=== PATIENT | male | born 1985 | race Caucasian/White ===

== ENCOUNTER 2022-02-20 09:05 | Emergency (ER) | payer OTHER, SELFPAY ==
[2022-02-20 09:13] VITALS: BP 158/105; PULSE 103; RESP 20; TEMP 35.6; O2SAT 97; BMI 32.1
--- NOTE | 2022-02-20 09:14 | ED_ITS ---
HPI - Abdominal Pain General Chief Complaint: Abdominal Pain Stated Complaint: right sided abdominal pain Time Seen by Provider: 02/20/22 09:10 History of Present Illness HPI narrative: Patient is a 36-year-old male with no past medical history presenting today with right upper quadrant pain. He says it started around 11:00 p.m. last night very uncomfortable mildly nauseous but no vomiting or fever. He was feeling well previously. Definitely tender to touch. Onset (ago): hour(s) Pain Consistency: constant Location: RUQ Quality: sharp Radiation: none Related Data Previous Rx's Medication Instructions Recorded hydrocodone 5 mg-acetaminophen 325 1 tab PO Q6H PRN pain #10 tabs 02/20/22 mg tablet Allergies Allergy/AdvReac Type Severity Reaction Status Date / Time No Known Drug Allergies Allergy Verified 02/20/22 09:24 Review of Systems Review of Systems Narrative: GENERAL: Denies chills, fatigue, malaise, fever, sweats, travel HEENT: Denies sinus pain, ear pain, sore throat, difficulty swallowing, neck pain RESPIRATORY: Denies dyspnea, cough, wheezing, hemoptysis, sputum. CARDIOVASCULAR: Denies chest pain, palpitations, orthopnea, edema GASTROINTESTINAL: See HPI : Denies dysuria, frequency, incontinence, hematuria, urinary retention, flank pain. MUSCULOSKELETAL: Denies weakness, joint pain, or bony pain SKIN: No rash, no erythema, no pruritus NEUROLOGIC: Denies weakness, dizziness, headache, numbness, change in speech, confusion PSYCHIATRIC: No concerning psychosocial issues. 12 point review of systems is negative except for those stated above and HPI Patient History Social History Smoking Status: Current every day smoker Exam Initial Vital Signs Initial Vital Signs: Vital Signs Temperature 96.1 F L 02/20/22 09:13 Pulse Rate 103 H 02/20/22 09:13 Respiratory Rate 20 02/20/22 09:13 Blood Pressure 158/105 H 02/20/22 09:13 Pulse Oximetry 97 02/20/22 09:13 Oxygen Delivery Method 02/20/22 09:13 GENERAL: Alert pleasant 36-year-old male appears uncomfortable HEENT: Head atraumatic,EOMI, pupils reactive, face symmetric, moist mucous membranes CARDIOVASCULAR: Regular rate and rhythm without murmurs, rubs or gallops. RESPIRATORY: Breath sounds equal bilaterally, no wheezes rales or rhonchi. ABDOMEN: Soft, tender right upper quadrant pain sign no guarding no rebound no CVA pain no lower abdominal pain especially no right lower quadrant EXTREMITIES: Normal range of motion, no clubbing or edema. Neurovascularly intact NEUROLOGICAL: Alert and oriented x4. SKIN: Warm, dry, no laceration, no petechiae, no rashes or lesions. Course Orders Ordered: ED Orders 02/20/22 09:14 EKG-12 Lead Stat 02/20/22 09:15 Complete Blood Count AUTO DIFF Stat Comprehensive Metabolic Panel Stat Lipase Stat 02/20/22 09:19 US abdomen limited Stat Discontinued Medications Ketorolac Tromethamine (Ketorolac 30 Mg/Ml Vial) 30 mg IV NOW ONE Stop: 02/20/22 09:15 Last Admin: 02/20/22 09:24 Dose: 30 mg Documented By: LYDIA Vital Signs Vital signs: Vital Signs - 8 hr 02/20/22 09:13 02/20/22 10:01 Temperature 96.1 F L Pulse Rate 103 H 93 H Respiratory Rate 20 24 Blood Pressure 158/105 H 131/81 Pulse Oximetry 97 95 Oxygen Delivery Method Room Air MDM - Abdominal Pain Lab Data Result diagrams: 02/20/22 09:15 02/20/22 09:15 Labs: Lab Results 02/20/22 02/20/22 Range/Units 09:15 09:15 WBC 10.3 (4.5-11.0) X10^3/uL RBC 5.32 (4.5-5.9) X10^6/uL Hgb 16.5 (13.5-17.5) g/dL Hct 47.0 (41-53) % MCV 88.4 (80-100) fL MCH 31.0 (26-34) PG MCHC 35.1 (30-36) % RDW 12.6 (11.6-14.8) % Plt Count 314 (150-400) X10^3/uL Neut % (Auto) 77.4 H (50-75) % Lymph % (Auto) 10.4 L (25-40) % [place] % (Auto) 9.5 (3-14) % Eos % (Auto) 1.9 L (2-4) % Baso % (Auto) 0.8 (0-2) % Neut # (Auto) 8000 H (4580-3721) /uL Lymph # (Auto) 1100 (6869-7500) /uL [place] # (Auto) 1000 H (0-900) /uL Eos # (Auto) 200 (0-450) /uL Baso # (Auto) 100 (0-100) /uL Sodium 142 (137-145) mmol/L Potassium 3.9 (3.4-5.1) mmol/L Chloride 106 (98-107) mmol/L Carbon Dioxide 23 (22-32) mmol/L BUN 13 (9-20) mg/dL Creatinine 0.97 (0.66-1.25) mg/dL Estimated GFR > 60 (>60) mL/min BUN/Creatinine Ratio 13.4 (6-22) Glucose 136 H (70-100) mg/dL Calcium 9.2 (8.4-10.2) mg/dL Total Bilirubin 0.5 (0.2-1.3) mg/dL AST 31 (17-59) IU/L ALT 49 (<50) IU/L Alkaline Phosphatase 95 (38-126) U/L Total Protein 8.4 H (6.3-8.2) g/dL Albumin 4.5 (3.5-5.0) g/dL Globulin 3.9 (1.7-4.1) g/dL Albumin/Globulin Ratio 1.2 (1.0-2.8) Lipase 96 (23-300) U/L Imaging Data US - abdomen: Radiologist's Impression: Aaron Yadav Chantelle MR#: [id number] : 1985 Acct:[id number] Age/Sex: 36 / M Date of Service: 02/20/22 Loc: ED Accession Number: [id number] ?? Procedure: US abdomen limited Ordering Provider: Nancy Milligan D.O. PROCEDURE: US ABDOMEN LIMITED ? INDICATIONS:? ruq ? TECHNIQUE:? Real-time focused scanning was performed of the abdomen, with image document ation.? ? COMPARISON:? None. ? FINDINGS:? The liver demonstrates normal size and minimal increased e chotexture.? Throughout the liver, several nonvascular nonshadowing hyperechoic foci are seen that measure up to 1.3 cm. ? There is a likely gallstone seen within the gallbladder neck, which does not appear mobile.? The gallbladder wall is not thickened, measuring 3 mm or less.? No specific pericholecystic fluid is seen.? The sonographic Head sign is negative. ? The biliary tree is not well seen.? There is no biliary dilatation, the common bile duct measures 5 mm.? ? The pancreas is not well seen. ? This study is limited by body habitus, overlying bowel gas, and limited acoustic windows. ? IMPRESSION:? Limited study demonstrating an apparent nonmobile stone seen within the gallbladder neck.? No additional sonographic signs of cholecystitis are seen. ? The biliary tree is not well seen, yet it does not appear dilated. ? Likely liver hemangiomas are seen.? If clinically appropriate, please consider follow-up liver protocol MRI (without and with contrast) for further evaluation (assuming that there is no contraindication).? ? Minimally increased liver echogenicity, likely related to fatty infiltration. ? ? Dictated by: Gary Cerda M.D. on 02/20/2022 at 8:56 ?? ECG Data Interpretation: Normal sinus rhythm rate 83 appear interval 166 QRS [address] changes no T-wave inversion MDM Narrative Medical decision making narrative: The patient was in quite severe pain right upper quadrant ultrasound does reveal impacted gallstone at the neck. Normal liver enzymes normal bilirubin normal lipase. There is no sign of acute cholecystitis he is afebrile without leukocytosis. I spoke with Dr. Micheal valladares who states that if pain is controlled which is after Toradol, then he may follow up outpatient for elective surgery. Patient states after Toradol his pain has completely resolved. At this time head discussed with patient and plan of discharge home with pain medications and return as needed if pain is worsening or he develops fever. He will need elective urgent surgery but not covered this time. Discharge Plan Departure Patient Disposition: Home Clinical Impression: Cholelithiasis Instructions: DI for Gallstones Activity Restrictions/Additional Instructions: *You have been diagnosed with gallstones *What to do: You do have 1 gallstone you will need to have an elective gallbladder surgery. Please follow a fat-free gallbladder diet. *Continue to take medications as directed Motrin 600 mg every 6 hours if needed for [id number] pain Tylenol 1000 mg every 6 hours if needed for [id number] pain Hydrocodone 1 tablet every 6 hours if needed for severe pain *Follow up with your primary care provider in 2-3 days or call [phone] *Return to ER if you should have increasing pain fever nausea vomiting or any new, worsening or concerning symptoms CONTROLLED SUBSTANCE DISCHARGE (Narcotoic/benzodiazepine/Flexeril/Phenergan) 1. You have been prescribed narcotic medications, it does have acetaminophen/Tylenol/paracetamol in it, DO NOT TAKE MORE THAN 4,00mg in 24 hours of Tylenol. TRAMADOL DOES NOT CONTAIN TYLENOL 2. Please understand that we cannot provide further refills of narcotics, benzodiazepines or controlled substances through the ED and her pain management will need to be through your provider. 3. While on these medications you cannot drive or operate heavy machinery. 4. You cannot sign legal documents or perform any duties such as this. 5. As long as you're taking opiate pain medications he should also be taking a stool softener such as Colace, Dulcolax, MiraLAX or prune juice, to help avoid constipation. Prescriptions: New hydrocodone-acetaminophen 5-325 mg tablet 1 tab PO Q6H PRN (Reason: pain) Qty: 10 0RF Referrals: [facility] [Provider Group]
--- NOTE | 2022-02-20 09:19 | DI.US.S_ITS ---
PROCEDURE: US ABDOMEN LIMITED INDICATIONS: ruq TECHNIQUE: Real-time focused scanning was performed of the abdomen, with image documentation. COMPARISON: None. FINDINGS: The liver demonstrates normal size and minimal increased echotexture. Throughout the liver, several nonvascular nonshadowing hyperechoic foci are seen that measure up to 1.3 cm. There is a likely gallstone seen within the gallbladder neck, which does not appear mobile. The gallbladder wall is not thickened, measuring 3 mm or less. No specific pericholecystic fluid is seen. The sonographic Head sign is negative. The biliary tree is not well seen. There is no biliary dilatation, the common bile duct measures 5 mm. The pancreas is not well seen. This study is limited by body habitus, overlying bowel gas, and limited acoustic windows. IMPRESSION: Limited study demonstrating an apparent nonmobile stone seen within the gallbladder neck. No additional sonographic signs of cholecystitis are seen. The biliary tree is not well seen, yet it does not appear dilated. Likely liver hemangiomas are seen. If clinically appropriate, please consider follow-up liver protocol MRI (without and with contrast) for further evaluation (assuming that there is no contraindication). Minimally increased liver echogenicity, likely related to fatty infiltration. Dictated by: Gary Cerda M.D. on 02/20/2022 at 8:56 Approved by: Gary Cerda M.D. on 02/20/2022 at 8:59
[2022-02-20] MEDS: KETOROLAC 30 MG/ML VIAL IV (09:24)
[2022-02-20 09:32] LABS: Add Manual Diff / Slide Review NO; Basophils Absolute Auto 100 /uL (0-100); Basophils Percent Auto 0.8 % (0-2); Eosinophils Absolute Auto 200 /uL (0-450); Eosinophils Percent Auto 1.9 % (2-4); Hemoglobin 16.5 g/dL (13.5-17.5); Lymphocytes Absolute Auto 1100 /uL (1100-4500); Lymphocytes Percent Auto 10.4 % (25-40); Mean Corpuscular HGB Conc 35.1 % (30-36); Mean Corpuscular Volume 88.4 fL (80-100); Monocytes Absolute Auto 1000 /uL (0-900); Monocytes Percent Auto 9.5 % (3-14); Neutrophils Absolute Auto 8000 /uL (1500-7000); Neutrophils Percent Auto 77.4 % (50-75); Platelet Count 314 X10^3/uL (150-400); Red Blood Cell Count 5.32 X10^6/uL (4.5-5.9); Red Cell Distribution Width 12.6 % (11.6-14.8); White Blood Cell Count 10.3 X10^3/uL (4.5-11.0)
[2022-02-20 09:37] LABS: Alanine Aminotransferase 49 IU/L (<50); Albumin 4.5 g/dL (3.5-5.0); Albumin Globulin Ratio 1.2 (1.0-2.8); Alkaline Phosphatase 95 U/L (38-126); Aspartate Aminotransferase 31 IU/L (17-59); BUN Creatinine Ratio 13.4 (6-22); Bilirubin Total 0.5 mg/dL (0.2-1.3); Blood Urea Nitrogen 13 mg/dL (9-20); Calcium 9.2 mg/dL (8.4-10.2); Carbon Dioxide 23 mmol/L (22-32); Chloride 106 mmol/L (98-107); Estimated Glomerular Filt Rate > 60 mL/min (>60); Globulin 3.9 g/dL (1.7-4.1); Glucose 136 mg/dL (70-100); HEMOLYSIS 23 (0-50); Lipase 96 U/L (23-300); Potassium 3.9 mmol/L (3.4-5.1); Sodium 142 mmol/L (137-145); Total Protein 8.4 g/dL (6.3-8.2)
[2022-02-20 10:01] VITALS: BP 131/81; PULSE 93; RESP 24; O2SAT 95
[2022-02-20 10:47] VITALS: BP 133/82; PULSE 90; RESP 18; O2SAT 98
== END 2022-02-20 10:51 | disposition home or self-care (01) ==
PROVIDERS: Emergency Provider Emergency Medicine
DX: K80.20 Calculus of gallbladder without cholecystitis without obstruction (principal); R11.0 Nausea
CPT/HCPCS: 36415; 76705; 80053; 83690; 85025; 93005; 96374; 99284; J1885

== ENCOUNTER 2024-06-03 14:21 | Emergency (ER) | payer OTHER, SELFPAY ==
[2024-06-03] VITALS (12 sets, daily range): BP systolic 113–145; BP diastolic 55–100; PULSE 68–98; RESP 20–29; TEMP 37; O2SAT 94–100; BMI 32.1
--- NOTE | 2024-06-03 14:31 | EKG_ITS ---
[address] [address] Test Date: 2024-06-03 Pat Name: Aaron Yadav Department: [facility] Room: Gender: Male Manager Internship: SOURAV : 1985 Requested By: Order Number: [id number] Reading MD: Butch Elias Measurements Intervals [place] Rate: 85 P: 50 CT: 162 QRS: 30 QRSD: 86 T: 26 QT: 330 QTc: 392 Interpretive Statements Normal sinus rhythm Electronically Signed On 06-03-2024 16:26:41 PST by Butch Elias
--- NOTE | 2024-06-03 14:31 | DI.RAD.S_ITS ---
PROCEDURE: XR CHEST 1V INDICATIONS: chest pain TECHNIQUE: One view of the chest was acquired. COMPARISON: None. FINDINGS: Surgical changes and devices: None. Lungs and pleura: Lungs are clear. No pleural effusions or pneumothorax. Mediastinum: Mediastinal contours appear normal. Heart size is normal. Bones and chest wall: No suspicious bony lesions. Overlying soft tissues appear unremarkable. IMPRESSION: No acute cardiopulmonary abnormality is seen. Dictated by: Richard Bonilla M.D. on 06/03/2024 at 15:03 Approved by: Richard Bonilla M.D. on 06/03/2024 at 15:03
[2024-06-03 14:58] LABS: Prothrombin Time 10.9 SECONDS (9.4-12.5)
[2024-06-03 15:00] LABS: PTT Partial Thromboplastin Tim 40 SECONDS (25.1-36.5)
[2024-06-03 15:01] LABS: Add Manual Diff / Slide Review NO; Basophils Absolute Auto 100 /uL (0-100); Basophils Percent Auto 0.5 % (0-2); Eosinophils Absolute Auto 600 /uL (0-450); Eosinophils Percent Auto 4.7 % (2-4); Hematocrit 39.1 % (41-53); Hemoglobin 13.4 g/dL (13.5-17.5); Lymphocytes Absolute Auto 2200 /uL (1100-4500); Lymphocytes Percent Auto 17.8 % (25-40); Mean Corpuscular HGB Conc 34.3 % (30-36); Mean Corpuscular Volume 96.3 fL (80-100); Monocytes Absolute Auto 1000 /uL (0-900); Monocytes Percent Auto 8.1 % (3-14); Neutrophils Absolute Auto 8400 /uL (1500-7000); Neutrophils Percent Auto 68.9 % (50-75); Platelet Count 543 X10^3/uL (150-400); Red Blood Cell Count 4.06 X10^6/uL (4.5-5.9); Red Cell Distribution Width 12.5 % (11.6-14.8); White Blood Cell Count 12.2 X10^3/uL (4.5-11.0)
[2024-06-03 15:02] LABS: Alanine Aminotransferase 44 IU/L (<50); Albumin 4.7 g/dL (3.5-5.0); Albumin Globulin Ratio 1.3 (1.0-2.8); Alkaline Phosphatase 98 U/L (38-126); Aspartate Aminotransferase 30 IU/L (17-59); BUN Creatinine Ratio 18.1 (6-22); Bilirubin Total 0.3 mg/dL (0.2-1.3); Blood Urea Nitrogen 13 mg/dL (9-20); Calcium 9.6 mg/dL (8.4-10.2); Carbon Dioxide 22 mmol/L (22-32); Chloride 108 mmol/L (98-107); Creatine Kinase 66 U/L (55-170); Estimated Glomerular Filt Rate > 60 mL/min (>60); Globulin 3.6 g/dL (1.7-4.1); Glucose 97 mg/dL (70-100); HEMOLYSIS < 15 (0-50); Lipase 146 U/L (23-300); Magnesium 1.8 mg/dL (1.6-2.3); Potassium 4.2 mmol/L (3.4-5.1); Sodium 140 mmol/L (137-145); Total Protein 8.3 g/dL (6.3-8.2)
[2024-06-03 15:14] LABS: NT-proBNP (BNP-Adult 18+) 27 pg/mL (<125); Troponin I < 0.012 ng/mL (0.01-0.034)
[2024-06-03] MEDS: ASPIRIN 81 MG CHEW TAB 324 MG PO (16:51)
--- NOTE | 2024-06-03 18:57 | ED.CHESTPAIN ---
HPI - Chest Pain General Chief Complaint: Chest Pain Stated Complaint: light headed, dizzy, abd pain Time Seen by Provider: 06/03/24 18:57 Source: patient Mode of arrival: Ambulatory Limitations: no limitations History of Present Illness HPI narrative: 39-year-old male without any significant past medical history presenting for multiple complaints. Stating that yesterday he got up fast from the couch started feeling lightheaded dizzy states that he did end up falling onto the floor after hitting a wall, denies head strike states that his symptoms lasted for about 30 minutes and has been intermittent nature with dizziness turning his head to the left makes it worse. Also complaining of diffuse abdominal cramping pain. Patient also states that he has a history of gallstone is worried that this might be the cause of his symptoms. Denies any other symptoms such as headache visual disturbances chest pain shortness breath fever chills or any other GI/ symptoms time. No recent travel no known sick contacts Related Data Previous Rx's Medication Instructions Recorded hydrocodone 5 mg-acetaminophen 325 1 tab PO Q6H PRN pain #10 tabs 02/20/22 mg tablet famotidine 20 mg tablet (Pepcid AC) 20 mg PO BID 1 month #60 tabs 06/03/24 Allergies Allergy/AdvReac Type Severity Reaction Status Date / Time No Known Drug Allergies Allergy Verified 02/20/22 09:24 Review of Systems Review of Systems Narrative: General: Denies fever, chills, weight loss HEENT: Denies headache, eye drainage, eye irritation, head trauma, sore throat, voice change Cardiovascular: Denies any chest pain, palpitations, shortness of breath, tachycardia Respiratory: Denies any shortness of breath, cough, wheeze, stridor GI/: Positive abdominal pain, denies nausea, vomiting, diarrhea, bright red blood per rectum, melanotic stools, urinary frequency, urinary retention, dysuria, hematuria MSK: Denies any joint pain, muscle pains, swelling Skin: Denies any rashes, lesions, discoloration Neuro: Positivelightheadedness, dizziness, Denies any headache, fainting, weakness Psych: Denies SI/HI Patient History Social History Smoking Status: Current every day smoker Smoking Status: Current every day smoker tobacco type: cigarettes and vaping alcohol intake frequency: 0-2 drinks per day Exam Narrative Exam Narrative: General: Cooperative, comfortable, well-developed, not in acute distress HEENT: Normocephalic, atraumatic, PERRLA, normal sclera, eyelids normal, Neck: Active full range of motion, atraumatic Chest: Normal to inspection, negative crepitus, no overlying erythema ecchymosis Respiratory: Normal respiratory effort, not in acute respiratory distress, clear to auscultation bilaterally negative cough, wheeze, tachypnea, rhonchi, rales Cardiology: Regular rate rhythm negative gallop, murmur, rubs GI/: Normal to inspection, soft, nonrigid, no tenderness to palpation, exam deferred MSK: Full range of active range of motion of all 4 extremities, atraumatic Skin: No rashes lesions noted Neuro: NIH of 0, Alert awake oriented x3, moves all 4 extremities spontaneously, cranial nerves intact, able to answer all questions appropriately follows commands appropriately Psych: Cooperative, negative suicidal or homicidal ideations Initial Vital Signs Initial Vital Signs: Vital Signs Temperature 98.6 F 06/03/24 14:24 Pulse Rate 98 H 06/03/24 14:24 Respiratory Rate 20 06/03/24 14:24 Blood Pressure 145/100 H 06/03/24 14:24 Pulse Oximetry 100 06/03/24 14:24 Oxygen Delivery Method Room Air 06/03/24 14:24 Course Orders Ordered: ED Orders 06/03/24 14:31 XR chest 1V Stat EKG-12 Lead Stat 06/03/24 14:40 Complete Blood Count AUTO DIFF Stat Comprehensive Metabolic Panel Stat Lipase Stat Magnesium Stat NT-proBNP (BNP-Adult 18+) Stat PTT Partial Thromboplastin Saul Stat Prothrombin Time INR Stat Troponin & CK Cardiac Panel Stat 06/03/24 19:12 CT abdomen pelvis w con Stat CT head/brain wo con Stat Famotidine (Famotidine 20 Mg/2 Ml Vial) 20 mg IV NOW CHARBEL Last Admin: 06/03/24 19:18 Dose: 20 mg Documented By: Discontinued Medications Aspirin (Aspirin 81 Mg Chew Tab) 324 mg PO NOW ONE Stop: 06/03/24 14:32 Last Admin: 06/03/24 16:51 Dose: 324 mg Documented By: Metoclopramide HCl (Metoclopramide 10 Mg/2 Ml Inj) 10 mg IV NOW ONE Stop: 06/03/24 19:14 Last Admin: 06/03/24 19:18 Dose: 10 mg Documented By: Vital Signs Vital signs: Vital Signs - 8 hr 06/03/24 14:24 06/03/24 16:38 06/03/24 16:39 Temperature 98.6 F Pulse Rate 98 H 81 84 Respiratory Rate 20 Blood Pressure 145/100 H Pulse Oximetry 100 97 97 Oxygen Delivery Method Room Air 06/03/24 16:39 06/03/24 17:00 06/03/24 17:00 Temperature Pulse Rate 79 74 Respiratory Rate 26 H 24 Blood Pressure 131/79 118/55 L Pulse Oximetry 94 95 Oxygen Delivery Method Room Air 06/03/24 17:30 06/03/24 17:30 06/03/24 18:00 Temperature Pulse Rate 71 Respiratory Rate 22 Blood Pressure 133/64 113/75 Pulse Oximetry 94 Oxygen Delivery Method 06/03/24 18:00 06/03/24 18:30 06/03/24 18:30 Temperature Pulse Rate 68 68 Respiratory Rate 21 21 Blood Pressure 125/71 Pulse Oximetry 94 96 Oxygen Delivery Method 06/03/24 19:00 06/03/24 19:00 06/03/24 19:30 Temperature Pulse Rate 75 79 Respiratory Rate 25 H 27 H Blood Pressure 117/78 Pulse Oximetry 97 97 Oxygen Delivery Method 06/03/24 19:30 06/03/24 19:43 06/03/24 19:43 Temperature Pulse Rate 84 Respiratory Rate 29 H Blood Pressure 119/60 128/67 Pulse Oximetry 98 Oxygen Delivery Method MDM - Chest Pain Differential Diagnosis Differential diagnosis: Likely other (ACS, pneumonia, electrolyte abnormality, peripheral vertigo, central vertigo, cholecystitis, cholelithiasis, pancreatitis) Lab Data 06/03/24 14:40 06/03/24 14:40 Labs: Lab Results 06/03/24 Range/Units 14:40 WBC 12.2 H (4.5-11.0) X10^3/uL RBC 4.06 L (4.5-5.9) X10^6/uL Hgb 13.4 L (13.5-17.5) g/dL Hct 39.1 L (41-53) % MCV 96.3 (80-100) fL MCH 33.0 (26-34) PG MCHC 34.3 (30-36) % RDW 12.5 (11.6-14.8) % Plt Count 543 H (150-400) X10^3/uL Neut % (Auto) 68.9 (50-75) % Lymph % (Auto) 17.8 L (25-40) % Braxton % (Auto) 8.1 (3-14) % Eos % (Auto) 4.7 H (2-4) % Baso % (Auto) 0.5 (0-2) % Neut # (Auto) 8400 H (0248-9909) /uL Lymph # (Auto) 2200 (6016-9777) /uL Braxton # (Auto) 1000 H (0-900) /uL Eos # (Auto) 600 H (0-450) /uL Baso # (Auto) 100 (0-100) /uL PT 10.9 (9.4-12.5) SECONDS INR 1.0 (0.9-1.3) APTT 40 H (25.1-36.5) SECONDS Sodium 140 (137-145) mmol/L Potassium 4.2 (3.4-5.1) mmol/L Chloride 108 H (98-107) mmol/L Carbon Dioxide 22 (22-32) mmol/L BUN 13 (9-20) mg/dL Creatinine 0.72 (0.66-1.25) mg/dL Estimated GFR > 60 (>60) mL/min BUN/Creatinine Ratio 18.1 (6-22) Glucose 97 (70-100) mg/dL Calcium 9.6 (8.4-10.2) mg/dL Magnesium 1.8 (1.6-2.3) mg/dL Total Bilirubin 0.3 (0.2-1.3) mg/dL AST 30 (17-59) IU/L ALT 44 (<50) IU/L Alkaline Phosphatase 98 (38-126) U/L Total Creatine Kinase 66 (55-170) U/L Troponin I < 0.012 (0.01-0.034) ng/mL NT-Pro-B Natriuret Pep 27 (<125) pg/mL Total Protein 8.3 H (6.3-8.2) g/dL Albumin 4.7 (3.5-5.0) g/dL Globulin 3.6 (1.7-4.1) g/dL Albumin/Globulin Ratio 1.3 (1.0-2.8) Lipase 146 (23-300) U/L Imaging Data Chest x-ray: Radiologist's Impression: [place] [address] XRay Report Signed Patient: Aaron Yadav MR#: [id number] : 1985 Acct:[id number] Age/Sex: 39 / M Date of Service: 06/03/24 Loc: ED Accession Number: [id number] Procedure: XR chest 1V Ordering Provider: Phoebe Gonzalez D.O. PROCEDURE: XR CHEST 1V INDICATIONS: chest pain TECHNIQUE: One view of the chest was acquired. COMPARISON: None. FINDINGS: Surgical changes and devices: None. Lungs and pleura: Lungs are clear. No pleural effusions or pneumothorax. Mediastinum: Mediastinal contours appear normal. Heart size is normal. Bones and chest wall: No suspicious bony lesions. Overlying soft tissues appear unremarkable. IMPRESSION: No acute cardiopulmonary abnormality is seen. CT scan - head: Radiologist's Impression: [place] [address] CT Scan Report Signed Patient: Aaron Yadav MR#: [id number] : 1985 Acct:[id number] Age/Sex: 39 / M Date of Service: 06/03/24 Loc: ED Accession Number: [id number] Procedure: CT head/brain wo con Ordering Provider: Sergio Ramos D.O. PROCEDURE: CT HEAD/BRAIN WO CON INDICATIONS: dizziness TECHNIQUE: Noncontrast 4.5 mm thick angled axial sections acquired from the foramen magnum to the vertex, with coronal and sagittal reformats. For radiation dose reduction, the following was used: automated exposure control, adjustment of mA and/or kV according to patient size. COMPARISON: None. FINDINGS: Image quality: Diagnostic. CSF spaces: Basal cisterns are patent. No extra-axial fluid collections. Ventricles are normal in size and shape. Brain: No midline shift. No intracranial masses or hemorrhage. Young-white matter interface is normal. Skull and face: Calvarium and visualized facial bones are intact, without suspicious lesions. Sinuses: Mucosal thickening is seen in the left maxillary sinus and right anterior ethmoid air cells. The remaining paranasal sinuses and mastoid air cells are clear. IMPRESSION: 1. No acute intracranial pathology. 2. Mild paranasal sinus disease. CT scan - abdomen/pelvis: Radiologist's Impression: [address] [address] [address] Scan Report Signed Patient: Aaron Yadav MR#: [id number] : 1985 Acct:[id number] Age/Sex: 39 / M Date of Service: 06/03/24 Loc: ED Accession Number: [id number] Procedure: CT abdomen pelvis w con Ordering Provider: Sergio Ramos D.O. PROCEDURE: CT ABDOMEN PELVIS W CON INDICATIONS: abd pain, hx of gallstones TECHNIQUE: After the administration of intravenous contrast, axial sections acquired from the lung bases to the pubic symphysis. Coronal and sagittal reformats were performed. For radiation dose reduction, the following was used: automated exposure control, adjustment of mA and/or kV according to patient size. COMPARISON: None. FINDINGS: Image quality: Diagnostic. Lower Chest: No significant findings. ABDOMEN: Liver: 1.3 cm hypoattenuating area is seen at the inferior right hepatic lobe (3/74). Additional subcentimeter hypodensities are present that are too small to characterize. Gallbladder: Calcified gallstone is seen in the gallbladder. No pericholecystic inflammatory changes. Biliary ducts: No biliary dilation. Pancreas: No ductal dilation. Spleen: Size is within normal limits. Adrenal Glands: No adrenal nodules. Kidneys and Ureters: No hydronephrosis. No solid mass. No complex renal cystic lesion which requires follow up. Stomach and Bowel: Normal appendix. Small and large bowel loops are unremarkable. There is thickening of the bowel wall on the gastric pylorus region and proximal duodenum with mild adjacent fat stranding. Suspected ulceration along the posterior aspect of the prior lower grade a. No signs of lynda perforation. A few small adjacent lymph nodes are nonspecific and may be reactive. Peritoneum: No abnormal intraperitoneal fluid. No free air. Ventral Wall: Small fat containing periumbilical hernia. Abdominal Nodes: No retroperitoneal or mesenteric adenopathy by size criteria. Vessels: Aorta and inferior vena cava are normal in size. PELVIS: Pelvic Organs: Unremarkable. Bladder: No bladder wall thickening, accounting for underdistention. Pelvic Nodes: No enlarged lymph nodes. Miscellaneous: No inguinal hernias are seen. Bones: No aggressive osseous abnormality. IMPRESSION: 1. Inflammatory changes in the distal stomach and proximal duodenum with focal area of suspected ulceration near the pylorus, suspicious for peptic ulcer disease. No definite signs of perforation. 2. Cholelithiasis without signs of acute cholecystitis. ECG Data Interpretation: EKG interpreted by ED physician sinus 85 beats per minute QTC 392, normal axis nonspecific ST changes no STEMI MDM Narrative Medical decision making narrative: 39-year-old male without any significant past medical history presenting for multiple complaints. Stating that yesterday he got up fast from the couch started feeling lightheaded dizzy states that he did end up falling onto the floor after hitting a wall, denies head strike states that his symptoms lasted for about 30 minutes and has been intermittent nature with dizziness turning his head to the left makes it worse. Also complaining of diffuse abdominal cramping pain. Patient had negative troponin performed here, EKG nonischemic. Lab work with mild leukocytosis of 12.2, Chem panel unremarkable. Hemoglobin stable. Patient had CT scan of the head without any intracranial abnormalities. CT abdomen and pelvis showing inflammation of the distal stomach and proximal duodenum consistent with peptic ulcer disease but no signs of perforation. Patient will be started on Pepcid and instructed to follow up with GI in outpatient setting as well as PCP. Strict return precautions given he verbalized understanding of this and agrees to being discharged home with outpatient follow up Discharge Plan Departure Patient Disposition: Home Clinical Impression: Acute pylorus ulcer Instructions: DI for Gastric Ulcer, DI for Peptic Ulcer Activity Restrictions/Additional Instructions: Please follow up with GI in the next week as well as your primary care doctor Please read the discharge instructions sheet carefully and bring all papers to all doctor follow-up visits, as it may contain information that your doctor may want to see. Disease processes change and evolve, if your symptoms worsen or if you develop any new symptoms that are concerning to you please return for evaluation. Your evaluation today does not show any evidence of any life-threatening/serious illnesses requiring admission to the hospital or surgery. Please follow-up with your doctor for re-evaluation in approximately 1 day. Seek immediate medical attention for any worrisome symptoms. *If you do not have a primary care provider please contact the [facility] Resource line at [phone]. They will ask some questions about your medical history and help get you set up with a doctor in the community. Prescriptions: New famotidine [Pepcid AC] 20 mg tablet 20 mg PO BID 30 Days Qty: 60 0RF No Action hydrocodone-acetaminophen 5-325 mg tablet 1 tab PO Q6H PRN (Reason: pain) Qty: 10 0RF Referrals: Davin Martinez MD [Non-Staff] - 3-5 days Stand Alone Forms: Patient Portal/API/Survey
--- NOTE | 2024-06-03 19:12 | DI.CT.S_ITS ---
PROCEDURE: CT HEAD/BRAIN WO CON INDICATIONS: dizziness TECHNIQUE: Noncontrast 4.5 mm thick angled axial sections acquired from the foramen magnum to the vertex, with coronal and sagittal reformats. For radiation dose reduction, the following was used: automated exposure control, adjustment of mA and/or kV according to patient size. COMPARISON: None. FINDINGS: Image quality: Diagnostic. CSF spaces: Basal cisterns are patent. No extra-axial fluid collections. Ventricles are normal in size and shape. Brain: No midline shift. No intracranial masses or hemorrhage. Young-white matter interface is normal. Skull and face: Calvarium and visualized facial bones are intact, without suspicious lesions. Sinuses: Mucosal thickening is seen in the left maxillary sinus and right anterior ethmoid air cells. The remaining paranasal sinuses and mastoid air cells are clear. IMPRESSION: 1. No acute intracranial pathology. 2. Mild paranasal sinus disease. Approved by: Adolfo Rodgers M.D. on 06/03/2024 at 20:00
--- NOTE | 2024-06-03 19:12 | DI.CT.S_ITS ---
PROCEDURE: CT ABDOMEN PELVIS W CON INDICATIONS: abd pain, hx of gallstones TECHNIQUE: After the administration of intravenous contrast, axial sections acquired from the lung bases to the pubic symphysis. Coronal and sagittal reformats were performed. For radiation dose reduction, the following was used: automated exposure control, adjustment of mA and/or kV according to patient size. COMPARISON: None. FINDINGS: Image quality: Diagnostic. Lower Chest: No significant findings. ABDOMEN: Liver: 1.3 cm hypoattenuating area is seen at the inferior right hepatic lobe (3/74). Additional subcentimeter hypodensities are present that are too small to characterize. Gallbladder: Calcified gallstone is seen in the gallbladder. No pericholecystic inflammatory changes. Biliary ducts: No biliary dilation. Pancreas: No ductal dilation. Spleen: Size is within normal limits. Adrenal Glands: No adrenal nodules. Kidneys and Ureters: No hydronephrosis. No solid mass. No complex renal cystic lesion which requires follow up. Stomach and Bowel: Normal appendix. Small and large bowel loops are unremarkable. There is thickening of the bowel wall on the gastric pylorus region and proximal duodenum with mild adjacent fat stranding. Suspected ulceration along the posterior aspect of the prior lower grade a. No signs of lynda perforation. A few small adjacent lymph nodes are nonspecific and may be reactive. Peritoneum: No abnormal intraperitoneal fluid. No free air. Ventral Wall: Small fat containing periumbilical hernia. Abdominal Nodes: No retroperitoneal or mesenteric adenopathy by size criteria. Vessels: Aorta and inferior vena cava are normal in size. PELVIS: Pelvic Organs: Unremarkable. Bladder: No bladder wall thickening, accounting for underdistention. Pelvic Nodes: No enlarged lymph nodes. Miscellaneous: No inguinal hernias are seen. Bones: No aggressive osseous abnormality. IMPRESSION: 1. Inflammatory changes in the distal stomach and proximal duodenum with focal area of suspected ulceration near the pylorus, suspicious for peptic ulcer disease. No definite signs of perforation. 2. Cholelithiasis without signs of acute cholecystitis. Approved by: Adolfo Rodgers M.D. on 06/03/2024 at 20:10
[2024-06-03] MEDS: FAMOTIDINE 20 MG/2 ML VIAL IV (19:18)
[2024-06-03] MEDS: METOCLOPRAMIDE 10 MG/2 ML INJ IV (19:18)
== END 2024-06-03 20:39 | disposition home or self-care (01) ==
PROVIDERS: Emergency Medicine; Emergency Provider Student in an Organized Health Care Education/Training Program
DX: R42 Dizziness and giddiness (principal); K25.3 Acute gastric ulcer without hemorrhage or perforation; W18.30XA Fall on same level, unspecified, initial encounter; Z87.19 Personal history of other diseases of the digestive system
CPT/HCPCS: 36415; 70450; 71045; 74177; 80053; 82550; 83690; 83735; 83880; 84484; 85025; 85610; 85730; 93005; 96374; 96375; 99284; 99285; J2765; Q9967